=== PATIENT | female | born 1970 ===

== ENCOUNTER 2024-06-30 17:40 | Inpatient (IN) | payer MEDICAID ==
[~2024-06-30] VITALS: Ht 165.1 cm; Wt 100.4 kg
[2024-06-30 18:07] LABS: BASOPHILS % (AUTO) 0.7 % (0.0-2.0); EOSINOPHILS % (AUTO) 2.1 % (1.0-6.0); HEMATOCRIT 34.7 % (36-46); HEMOGLOBIN 11.2 g/dL (12.0-16.0); LYMPHOCYTES # (AUTO) 1.5 K/uL (1.0-4.8); LYMPHOCYTES % (AUTO) 30.8 % (22.0-44.0); MEAN CORPUSCULAR HGB CONC 32.4 G/dL (31.0-37.0); MEAN CORPUSCULAR VOLUME 93 fL (80-100); MONOCYTES # (AUTO) 0.6 K/uL (0.1-1.0); MONOCYTES % (AUTO) 11.4 % (2.0-9.0); NEUTROPHILS # (AUTO) 2.7 K/uL (1.8-7.7); PLATELET COUNT (AUTO) 175 K/uL (150-450); RED BLOOD CELL COUNT(AUTO) 3.75 MIL/uL (4.00-5.20); RED CELL DISTRIBUTION WIDTH 16.1 % (11.5-14.5)
[2024-06-30 18:16] LABS: ANION GAP 6 mmol/L (8-16); CALCIUM, TOTAL 8.7 mg/dL (8.8-10.5); CARBON DIOXIDE 28 mmol/L (22-29); CHLORIDE 106 mmol/L (98-107); CREATININE 0.79 mg/dL (0.60-1.30); GLOMERULAR FILTR. RATE CALC > 60 mL/min (>60); GLUCOSE,RANDOM 87 mg/dL (70-110); POTASSIUM 3.8 mmol/L (3.5-5.1); SODIUM SERUM 140 mmol/L (136-145); UREA NITROGEN, BLOOD 21 mg/dL (7-18)
[2024-06-30 18:32] LABS: ALCOHOL, BLOOD (SERUM) < 3 mg/dL (0-10)
[2024-06-30 19:30] VITALS: O2SAT 98
[2024-06-30] MEDS: DiphenhydrAMINE HCL 50 MG/ML VIAL IM ONE (20:26)
[2024-06-30] MEDS: LORazepam 2 MG/ML VIAL IM ONE (20:26)
[2024-06-30] MEDS: HALOPERIDOL LACTATE 5 MG/ML VIAL IM ONE (20:26)
[2024-06-30 21:29] LABS: COVID AG,FIA SOURCE NASAL SWAB
[2024-06-30 21:51] LABS: SARS-COV2 (COVID) ANTIGEN,FIA Negative (Negative)
[2024-07-01 01:53] VITALS: BP 123/73; PULSE 73; RESP 18; TEMP 98.4; O2SAT 94
[2024-07-01] MEDS ORDERED: ACETAMINOPHEN 325 MG TABLET PO PRN (06:45)
[2024-07-01] MEDS ORDERED: CloNIDine HCL 0.1 MG TABLET PO PRN (06:45)
[2024-07-01] MEDS ORDERED: MAGNESIUM HYDROXIDE SUSPENSION 30 ML UDCUP PO PRN (06:45)
[2024-07-01] MEDS ORDERED: OMEPRAZOLE 20 MG CAPSULE PO PRN (06:45)
[2024-07-01] MEDS ORDERED: BACITRACIN 28 GM OINTMENT TP PRN (06:45)
[2024-07-01] MEDS ORDERED: DOCUSATE SODIUM 100 MG CAPSULE PO PRN (06:45)
[2024-07-01] MEDS ORDERED: MAG HYDROX/ALUMINUM HYD/SIMETH ES 30 ML SUSPENSION UDCUP PO PRN (06:45)
[2024-07-01] MEDS ORDERED: ONDANSETRON 4 MG TABLET PO PRN (06:45)
[2024-07-01] MEDS ORDERED: BENZOCAINE/MENTHOL [CEPACOL] LOZENGE PO PRN (06:45)
[2024-07-01 08:33] VITALS: RESP 16
[2024-07-01 13:15] VITALS: RESP 17
[2024-07-01] MEDS: IBUPROFEN 600 MG TABLET PO PRN (13:15)
[2024-07-01 14:15] VITALS: RESP 16
[2024-07-01] MEDS: LamoTRIgine 100 MG TABLET PO SCH (17:13)
[2024-07-01] MEDS: OLANZapine 10 MG TABLET PO SCH (20:57)
[2024-07-02] MEDS: NICOTINE POLACRILEX 2 MG LOZENGE PO PRN (08:14)
[2024-07-02 08:32] VITALS: BP 152/78; PULSE 100; RESP 18; TEMP 98; O2SAT 97
[2024-07-02] MEDS ORDERED: LORazepam 2 MG/ML VIAL ONE (18:00)
[2024-07-02] MEDS ORDERED: DiphenhydrAMINE HCL 50 MG/ML VIAL ONE (18:00)
[2024-07-02] MEDS ORDERED: HALOPERIDOL LACTATE 5 MG/ML VIAL ONE (18:00)
[2024-07-02] MEDS: LORazepam 2 MG/ML VIAL IM ONE (18:18)
[2024-07-02] MEDS: DiphenhydrAMINE HCL 50 MG/ML VIAL IM ONE (18:19)
[2024-07-02] MEDS: HALOPERIDOL LACTATE 5 MG/ML VIAL IM ONE (18:19)
[2024-07-02 19:15] VITALS: BP 110/62; RESP 17; O2SAT 98
[2024-07-02 21:12] VITALS: BP 109/68; PULSE 65; RESP 16; TEMP 98.7; O2SAT 95
[2024-07-03] MEDS: ALBUTEROL SULFATE HFA 90 MCG/PUFF 8 GM INHALER IH PRN (07:56)
[2024-07-03 08:28] VITALS: BP 152/90; PULSE 84; RESP 17; TEMP 97.7; O2SAT 95
[2024-07-03 11:34] VITALS: RESP 18
[2024-07-03 12:34] VITALS: RESP 18
[2024-07-03 15:30] VITALS: BP 96/62; PULSE 91; RESP 18; O2SAT 95
[2024-07-03 20:00] VITALS: BP 113/51; PULSE 88; RESP 16; TEMP 97.4; O2SAT 96
[2024-07-04 09:08] VITALS: BP 101/53; PULSE 89; RESP 17; TEMP 97; O2SAT 93
[2024-07-04] MEDS: LOPERAMIDE HCL 2 MG CAPSULE PO PRN (19:53)
[2024-07-04 20:00] VITALS: BP 147/79; PULSE 90; RESP 16; TEMP 97.4; O2SAT 97
[2024-07-05 08:27] VITALS: BP 90/69; PULSE 87; RESP 18; TEMP 98.1; O2SAT 99
[2024-07-05 16:41] VITALS: BP 116/60; PULSE 90; RESP 18
[2024-07-05 17:41] VITALS: RESP 17
[2024-07-05 23:10] VITALS: RESP 18
[2024-07-06 08:37] VITALS: BP 114/82; PULSE 92; RESP 16; TEMP 98.9; O2SAT 100
[2024-07-06 16:13] VITALS: RESP 17
[2024-07-06] MEDS: ValACYclovir HCL 500 MG TABLET PO SCH (17:00)
[2024-07-06 21:00] VITALS: BP 138/75; PULSE 92; RESP 16; TEMP 98.3; O2SAT 95
[2024-07-06 23:55] VITALS: BP 126/80; PULSE 90; RESP 17; TEMP 97; O2SAT 93
[2024-07-07] MEDS: PETROLATUM,WHITE 28 GM JELLY TP PRN (06:08)
[2024-07-07 08:10] VITALS: BP 114/75; PULSE 91; RESP 16; TEMP 97.6; O2SAT 97
[2024-07-07 20:11] VITALS: BP 109/82; PULSE 89; RESP 17; TEMP 98.5; O2SAT 97
[2024-07-08 08:19] VITALS: BP 125/57; PULSE 89; RESP 18; TEMP 98.3; O2SAT 99
[2024-07-08] MEDS: NYSTATIN 30 GM CREAM TP SCH (16:38)
[2024-07-08 20:58] VITALS: BP 124/77; PULSE 88; RESP 18; TEMP 97.7; O2SAT 96
[2024-07-09 09:01] VITALS: BP 104/56; PULSE 88; RESP 18; TEMP 97.8; O2SAT 97
[2024-07-09] MEDS ORDERED: OLAN10TA26 PO (15:43)
[2024-07-09] MEDS ORDERED: LAMO-24 PO (15:43)
[2024-07-09] MEDS ORDERED: VALA500T34 PO (15:44)
[2024-07-09] MEDS ORDERED: NYST30CR9 TP (15:46)
== END 2024-07-09 16:06 | disposition home or self-care (01) | DRG 750 ==
LOC: EMS 17:40 → B3A 23:26
PROVIDERS: ADMIT Psychiatry & Neurology Psychiatry; ATTEND Psychiatry & Neurology Psychiatry
DX: F25.9 Schizoaffective disorder, unspecified (principal); R45.851 Suicidal ideations; F41.9 Anxiety disorder, unspecified; G47.00 Insomnia, unspecified; Z20.822 Contact with and (suspected) exposure to COVID-19; F17.200 Nicotine dependence, unspecified, uncomplicated; Z71.6 Tobacco abuse counseling; F10.90 Alcohol use, unspecified, uncomplicated; Y90.0 Blood alcohol level of less than 20 mg/100 ml; Z79.899 Other long term (current) drug therapy
CPT/HCPCS: 80048; 83036; 84703; 85025; 96372; 99285; G0480; J1200; J1630; J2060; J3535